=== PATIENT | male | born 1930 | race Caucasian/White ===

== ENCOUNTER 2017-09-17 10:01 | Inpatient (IN) | payer MEDICARE, OTHER ==
[2017-09-17] MEDS: ALBUTEROL 0.083% (NEB) 2.5 MG/3 ML AMP NEB (11:29)
[2017-09-17] MEDS: IPRATROPIUM (NEB) 0.5 MG/2.5 ML AMP NEB (11:30)
[2017-09-17 11:42] LABS: ADD MAN DIFF? NO
[2017-09-17 11:46] LABS: BASOPHILS % 0.1 % (0.0-2.0); EOSINOPHILS # 0.1 10^3/ul (0.0-0.5); EOSINOPHILS % 0.7 % (0.0-7.0); HEMOGLOBIN 10.3 g/dl (14.0-18.0); LYMPHOCYTES # 0.7 10^3/ul (0.8-2.9); LYMPHOCYTES % 4.9 % (15.0-51.0); MEAN CORPUSCULAR HEMOGLOBIN 27.2 pg (29.0-33.0); MEAN CORPUSCULAR HGB CONC 33.2 g/dl (32.0-37.0); MEAN PLATELET VOLUME 9.7 fl (7.4-10.4); MONOCYTE # 0.6 10^3/ul (0.3-0.9); MONOCYTES % 3.9 % (0.0-11.0); NEUTROPHIL # 13.3 10^3/ul (1.6-7.5); NEUTROPHILS % 89.9 % (39.0-77.0); PLATELET COUNT 361 10^3/UL (140-415); RED BLOOD COUNT 3.78 10^6/ul (4.70-6.10); RED CELL DISTRIBUTION WIDTH 16.4 % (11.5-14.5)
[2017-09-17 11:46] LABS: WHITE BLOOD COUNT 14.8 10^3/ul (4.8-10.8)
[2017-09-17] MEDS: CEFEPIME 2GM/50 ML (PMX) 50 ML IVPB (11:51)
[2017-09-17] MEDS: ACETAMINOPHEN 325 MG TAB PO (11:51)
[2017-09-17] MEDS: METHYLPREDNISOLONE 125 MG INJ IV (11:51)
[2017-09-17] MEDS: KETOROLAC 15 MG INJ IV (11:51)
[2017-09-17] MEDS: SODIUM CHLORIDE 0.9% 1L BAG IV* (11:52)
[2017-09-17 12:03] LABS: LACTIC ACID 1.7 mmol/L (0.5-2.0)
[2017-09-17 12:07] LABS: ALANINE AMINOTRANSFERASE 29 IU/L (13-69); ALBUMIN/GLOBULIN RATIO 1.08; ALKALINE PHOSPHATASE 82 IU/L (42-121); ANION GAP 20 (8-16); ASPARTATE AMINO TRANSFERASE 23 IU/L (15-46); BILIRUBIN,INDIRECT 0.3 mg/dl (0-1.1); BILIRUBIN,TOTAL 0.3 mg/dl (0.2-1.3); BLOOD UREA NITROGEN 21 mg/dl (7-20); CALCIUM 9.4 mg/dl (8.4-10.2); CARBON DIOXIDE 24 mmol/L (21-31); CHLORIDE 101 mmol/L (97-110); CREATININE 0.99 mg/dl (0.61-1.24); GLUCOSE 192 mg/dl (70-220); LIPASE 53 U/L (23-300); POTASSIUM 5.3 mmol/L (3.5-5.1); SODIUM 140 mmol/L (135-144); TOTAL PROTEIN 7.7 g/dl (6.1-8.1)
[2017-09-17 12:12] LABS: INR 1.06; PROTIME 13.9 Sec (11.9-14.9); PT RATIO 1.1
[2017-09-17 12:18] LABS: TROPONIN-I < 0.012 ng/ml (0.00-0.12)
[2017-09-17] MEDS: VANCOMYCIN 1 GM (PMX) 250 ML IVPB (12:52)
[2017-09-17 13:25] LABS: ADD UMIC YES; UR ASCORBIC ACID NEGATIVE (NEGATIVE); UR BILIRUBIN (Dip) NEGATIVE (NEGATIVE); UR BLOOD (Dip) 1+ mg/dL (NEGATIVE); UR CLARITY CLEAR (CLEAR); UR COLOR STRAW (YELLOW); UR GLUCOSE (Dip) NEGATIVE (NEGATIVE); UR KETONES (Dip) NEGATIVE (NEGATIVE); UR LEUKOCYTE ESTERASE (Dip) NEGATIVE Leu/ul (NEGATIVE); UR NITRITE (Dip) NEGATIVE (NEGATIVE); UR RBC 0 /HPF (0-5); UR SPECIFIC GRAVITY (Dip) 1.004 (1.003-1.030); UR TOTAL PROTEIN (Dip) NEGATIVE (NEGATIVE); UR UROBILINOGEN (Dip) NEGATIVE (NEGATIVE); UR WBC 0 /HPF (0-5)
[2017-09-17] MEDS ORDERED: ONDANSETRON 4 MG INJ IV (13:30)
[2017-09-17] MEDS ORDERED: ACETAMINOPHEN 325 MG TAB PO ×2 (13:30→16:00)
[2017-09-17 13:48] LABS: LACTIC ACID 1.3 mmol/L (0.5-2.0)
[2017-09-17] MEDS: OSELTAMIVIR 75 MG CAP PO ×2 (13:52→17:57)
[2017-09-17] MEDS ORDERED: DEXTROSE 50% 50 ML SYRINGE IV ×2 (16:00)
[2017-09-17] MEDS ORDERED: NACL 0.9% 3 ML SYG IV (16:00)
[2017-09-17] MEDS ORDERED: GLUCOSE GEL 15 GRAM TUBE PO ×2 (16:00)
[2017-09-17] MEDS ORDERED: GLUCOSE GEL 15 GRAM TUBE BUCCAL (16:00)
[2017-09-17] MEDS ORDERED: GLUCAGON 1 MG INJ IM (16:00)
[2017-09-17 16:30] LABS: LACTIC ACID 1.6 mmol/L (0.5-2.0)
[2017-09-17] MEDS ORDERED: ALBUTEROL HFA 8 GM INHALER INH (16:30)
[2017-09-17] MEDS: INSULIN ASPART [NOVOLOG] 3 ML PEN SC ×3 (17:57→20:57)
[2017-09-17] MEDS: FERROUS SULFATE (EC) 325 MG TAB PO (20:32)
[2017-09-17] MEDS: RANITIDINE 150 MG TAB PO (20:32)
[2017-09-17] MEDS: MAGNESIUM OXIDE 400 MG TAB PO (20:33)
[2017-09-17] MEDS ORDERED: INSULIN GLARGINE [LANtus] 3 ML PEN SC (21:00)
[2017-09-18] MEDS: hydrALAzine 20 MG INJ IV ×2 (00:36→04:42)
[2017-09-18] MEDS: OSELTAMIVIR 75 MG CAP PO ×3 (00:44→21:46)
[2017-09-18] MEDS: ACCU-CHEK XX (02:00)
[2017-09-18] MEDS: morphine 2 MG INJ IV (02:20)
[2017-09-18] MEDS: INSULIN ASPART [NOVOLOG] 3 ML PEN SC ×6 (02:58→21:50)
[2017-09-18] MEDS: ENALAPRILAT 1.25 MG INJ IV (03:00)
[2017-09-18 06:08] LABS: ADD MAN DIFF? NO
[2017-09-18] MEDS: LEVOTHYROXINE 25 MCG TAB PO (06:09)
[2017-09-18] MEDS: PANTOPRAZOLE (EC) 40 MG TAB PO (06:10)
[2017-09-18 06:12] LABS: BASOPHILS % 0.1 % (0.0-2.0); HEMATOCRIT 33.7 % (42.0-52.0); HEMOGLOBIN 11.1 g/dl (14.0-18.0); LYMPHOCYTES # 0.9 10^3/ul (0.8-2.9); LYMPHOCYTES % 4.3 % (15.0-51.0); MEAN CORPUSCULAR HEMOGLOBIN 26.9 pg (29.0-33.0); MEAN CORPUSCULAR HGB CONC 32.9 g/dl (32.0-37.0); MEAN CORPUSCULAR VOLUME 81.8 fl (82.0-101.0); MEAN PLATELET VOLUME 11.2 fl (7.4-10.4); MONOCYTE # 1.3 10^3/ul (0.3-0.9); MONOCYTES % 6.4 % (0.0-11.0); NEUTROPHIL # 17.4 10^3/ul (1.6-7.5); NEUTROPHILS % 88.5 % (39.0-77.0); PLATELET COUNT 365 10^3/UL (140-415); RED BLOOD COUNT 4.12 10^6/ul (4.70-6.10); RED CELL DISTRIBUTION WIDTH 16.6 % (11.5-14.5)
[2017-09-18 06:12] LABS: WHITE BLOOD COUNT 19.7 10^3/ul (4.8-10.8)
[2017-09-18 06:48] LABS: ANION GAP 23 (8-16); BLOOD UREA NITROGEN 22 mg/dl (7-20); CALCIUM 9.5 mg/dl (8.4-10.2); CARBON DIOXIDE 19 mmol/L (21-31); CHLORIDE 104 mmol/L (97-110); MAGNESIUM 1.6 mg/dl (1.7-2.5); PHOSPHORUS 3.8 mg/dl (2.5-4.9); POTASSIUM 4.2 mmol/L (3.5-5.1); SODIUM 142 mmol/L (135-144)
[2017-09-18 06:52] LABS: GLUCOSE 421 mg/dl (70-220)
[2017-09-18] MEDS: GABAPENTIN 300 MG CAP PO (08:25)
[2017-09-18] MEDS: MAGNESIUM OXIDE 400 MG TAB PO ×3 (08:25→21:46)
[2017-09-18] MEDS: MULTIVITAMINS THERAPEUTIC TAB PO (08:26)
[2017-09-18] MEDS: RANITIDINE 150 MG TAB PO ×2 (08:27→21:46)
[2017-09-18] MEDS: NIFEdipine (XL) 60 MG TAB PO (08:27)
[2017-09-18] MEDS: ASCORBIC ACID 500 MG TAB PO (08:27)
[2017-09-18] MEDS: FERROUS SULFATE (EC) 325 MG TAB PO ×3 (08:29→21:46)
[2017-09-18] MEDS: ENOXAPARIN 40 MG/0.4 ML SYG SC (08:30)
[2017-09-18] MEDS: MAGNESIUM SULFATE 2 GM/50 ML 50 ML IVPB (10:22)
[2017-09-18] MEDS: INSULIN GLARGINE [LANtus] 3 ML PEN SC (10:28)
[2017-09-18] MEDS: HYDROCODONE/APAP (5/325) TAB PO (11:51)
[2017-09-18] MEDS: ONDANSETRON 4 MG TAB PO (12:26)
[2017-09-18] MEDS: SOD CHLORIDE 0.9% 500 ML IV (13:52)
[2017-09-18] MEDS: SOD CHLORIDE 0.9% 1,000 ML IV ×2 (14:09→16:09)
[2017-09-18 15:52] LABS: LACTIC ACID 1.9 mmol/L (0.5-2.0)
[2017-09-19] MEDS: ACCU-CHEK XX (02:00)
[2017-09-19] MEDS: PANTOPRAZOLE (EC) 40 MG TAB PO (06:06)
[2017-09-19] MEDS: LEVOTHYROXINE 25 MCG TAB PO (06:06)
[2017-09-19 06:13] LABS: ADD MAN DIFF? NO
[2017-09-19 06:15] LABS: WHITE BLOOD COUNT 10.6 10^3/ul (4.8-10.8)
[2017-09-19 06:15] LABS: BASOPHILS % 0.1 % (0.0-2.0); EOSINOPHILS # 0.1 10^3/ul (0.0-0.5); EOSINOPHILS % 0.6 % (0.0-7.0); HEMATOCRIT 27.1 % (42.0-52.0); HEMOGLOBIN 8.9 g/dl (14.0-18.0); LYMPHOCYTES % 19.1 % (15.0-51.0); MEAN CORPUSCULAR HEMOGLOBIN 27.2 pg (29.0-33.0); MEAN CORPUSCULAR HGB CONC 32.8 g/dl (32.0-37.0); MEAN CORPUSCULAR VOLUME 82.9 fl (82.0-101.0); MEAN PLATELET VOLUME 10.1 fl (7.4-10.4); MONOCYTES % 9.6 % (0.0-11.0); NEUTROPHIL # 7.4 10^3/ul (1.6-7.5); NEUTROPHILS % 70.2 % (39.0-77.0); PLATELET COUNT 268 10^3/UL (140-415); RED BLOOD COUNT 3.27 10^6/ul (4.70-6.10); RED CELL DISTRIBUTION WIDTH 16.8 % (11.5-14.5)
[2017-09-19 06:52] LABS: ANION GAP 14 (8-16); BLOOD UREA NITROGEN 26 mg/dl (7-20); CALCIUM 8.9 mg/dl (8.4-10.2); CARBON DIOXIDE 23 mmol/L (21-31); CHLORIDE 109 mmol/L (97-110); CREATININE 1.17 mg/dl (0.61-1.24); GLUCOSE 117 mg/dl (70-220); MAGNESIUM 2.4 mg/dl (1.7-2.5); PHOSPHORUS 3.6 mg/dl (2.5-4.9); POTASSIUM 4.6 mmol/L (3.5-5.1); SODIUM 141 mmol/L (135-144)
[2017-09-19] MEDS ORDERED: INSULIN GLARGINE [LANtus] 3 ML PEN SC (08:00)
[2017-09-19] MEDS: INSULIN ASPART [NOVOLOG] 3 ML PEN SC ×2 (08:02→12:12)
[2017-09-19] MEDS: INSULIN GLARGINE [LANtus] 3 ML PEN SC (08:05)
[2017-09-19] MEDS: OSELTAMIVIR 75 MG CAP PO (08:24)
[2017-09-19] MEDS: RANITIDINE 150 MG TAB PO (08:24)
[2017-09-19] MEDS: MULTIVITAMINS THERAPEUTIC TAB PO (08:24)
[2017-09-19] MEDS: MAGNESIUM OXIDE 400 MG TAB PO (08:24)
[2017-09-19] MEDS: NIFEdipine (XL) 60 MG TAB PO (08:24)
[2017-09-19] MEDS: GABAPENTIN 300 MG CAP PO (08:24)
[2017-09-19] MEDS: ASCORBIC ACID 500 MG TAB PO (08:25)
[2017-09-19] MEDS: FERROUS SULFATE (EC) 325 MG TAB PO (08:25)
[2017-09-19] MEDS: ENOXAPARIN 40 MG/0.4 ML SYG SC (08:26)
[2017-09-19] MEDS: ONDANSETRON 4 MG TAB PO (13:41)
== END 2017-09-19 14:20 | disposition home health service (06) | DRG 195 ==
LOC: E/R 10:01 → MS2 13:09
DX: J10.1 Influenza due to other identified influenza virus with other respiratory manifestations (principal); I10 Essential (primary) hypertension; Z87.891 Personal history of nicotine dependence
CPT/HCPCS: 36415; 71045; 71046; 80048; 80053; 81001; 82962; 83036; 83605; 83690; 83735; 84100; 84484; 85025; 85610; 85730; 87040; 87086; 87400; 93005; 94664; 96374; 96375; 99285-25

== ENCOUNTER → 2018-02-18 | Outpatient (CLI) | payer MEDICARE, OTHER | END | disposition home or self-care (01) | LOC: C/S 12:22 | DX: R10.9 Unspecified abdominal pain (principal) | CPT/HCPCS: 74176 ==

== ENCOUNTER 2018-04-24 10:49 | Emergency (ER) | payer MEDICARE, OTHER ==
[2018-04-24 11:28] LABS: ADD MAN DIFF? NO
[2018-04-24 11:30] LABS: WHITE BLOOD COUNT 10.1 10^3/ul (4.8-10.8)
[2018-04-24 11:30] LABS: BASOPHILS % 0.2 % (0.0-2.0); EOSINOPHILS # 0.2 10^3/ul (0.0-0.5); EOSINOPHILS % 1.5 % (0.0-7.0); HEMATOCRIT 32.5 % (42.0-52.0); HEMOGLOBIN 10.5 g/dl (14.0-18.0); LYMPHOCYTES # 1.9 10^3/ul (0.8-2.9); LYMPHOCYTES % 18.9 % (15.0-51.0); MEAN CORPUSCULAR HEMOGLOBIN 28.2 pg (29.0-33.0); MEAN CORPUSCULAR HGB CONC 32.3 g/dl (32.0-37.0); MEAN CORPUSCULAR VOLUME 87.4 fl (82.0-101.0); MEAN PLATELET VOLUME 11.2 fl (7.4-10.4); MONOCYTE # 0.7 10^3/ul (0.3-0.9); NEUTROPHIL # 7.2 10^3/ul (1.6-7.5); NEUTROPHILS % 71.8 % (39.0-77.0); PLATELET COUNT 261 10^3/UL (140-415); RED BLOOD COUNT 3.72 10^6/ul (4.70-6.10); RED CELL DISTRIBUTION WIDTH 14.6 % (11.5-14.5)
[2018-04-24 11:48] LABS: ALANINE AMINOTRANSFERASE 16 IU/L (13-69); ALBUMIN 3.9 g/dl (3.3-4.9); ALBUMIN/GLOBULIN RATIO 1.18; ALKALINE PHOSPHATASE 61 IU/L (42-121); ANION GAP 15 (5-13); ASPARTATE AMINO TRANSFERASE 16 IU/L (15-46); BILIRUBIN,INDIRECT 0.2 mg/dl (0-1.1); BILIRUBIN,TOTAL 0.2 mg/dl (0.2-1.3); BLOOD UREA NITROGEN 16 mg/dl (7-20); CALCIUM 9.6 mg/dl (8.4-10.2); CARBON DIOXIDE 24 mmol/L (21-31); CHLORIDE 102 mmol/L (97-110); CREATININE 1.45 mg/dl (0.61-1.24); GLUCOSE 245 mg/dl (70-220); LIPASE 49 U/L (23-300); POTASSIUM 5.1 mmol/L (3.5-5.1); SODIUM 141 mmol/L (135-144); TOTAL PROTEIN 7.2 g/dl (6.1-8.1)
[2018-04-24 12:00] LABS: TROPONIN-I < 0.012 ng/ml (0.000-0.120)
[2018-04-24 12:47] LABS: INR 0.97
[2018-04-24 12:48] LABS: PARTIAL THROMBOPLASTIN TIME 28.3 Sec (23.0-35.0)
[2018-04-24 13:48] LABS: ADD UMIC YES; UR CLARITY SLIGHTLY CLOUDY (CLEAR); UR COLOR AMBER (YELLOW)
[2018-04-24 13:50] LABS: UR TOTAL PROTEIN (Dip) 2+ mg/dl (NEGATIVE)
[2018-04-24 13:51] LABS: UR BILIRUBIN (Dip) 2+ mg/dL (NEGATIVE); UR BLOOD (Dip) 3+ mg/dL (NEGATIVE); UR GLUCOSE (Dip) 1+ mg/dL (NEGATIVE); UR KETONES (Dip) NEGATIVE (NEGATIVE); UR NITRITE (Dip) NEGATIVE (NEGATIVE)
[2018-04-24 13:52] LABS: UR ASCORBIC ACID 40 mg/dL (NEGATIVE); UR LEUKOCYTE ESTERASE (Dip) 1+ Leu/ul (NEGATIVE); UR UROBILINOGEN (Dip) 4.0 E.U./dL mg/dL (NEGATIVE)
[2018-04-24 13:53] LABS: UR BACTERIA FEW /HPF (NONE SEEN); UR SQUAMOUS EPITHELIAL CELL FEW /HPF (FEW); URINE RBCS >200 /HPF (0)
== END 2018-04-24 15:52 | disposition home or self-care (01) ==
LOC: E/R 10:49
DX: N18.9 Chronic kidney disease, unspecified (principal); R53.1 Weakness; D64.9 Anemia, unspecified; E11.65 Type 2 diabetes mellitus with hyperglycemia; I73.9 Peripheral vascular disease, unspecified; R31.29 Other microscopic hematuria; I12.9 Hypertensive chronic kidney disease with stage 1 through stage 4 chronic kidney disease, or unspecified chronic kidney disease; J45.909 Unspecified asthma, uncomplicated; Z87.891 Personal history of nicotine dependence; Z79.4 Long term (current) use of insulin; Z79.01 Long term (current) use of anticoagulants; Z79.82 Long term (current) use of aspirin
CPT/HCPCS: 36415; 71045; 74176; 80053; 81001; 82962; 83690; 84484; 85025; 85610; 85730; 87086; 93005; 99285-25

== ENCOUNTER → 2018-09-09 | Outpatient (CLI) | payer MEDICARE, OTHER | END | disposition home or self-care (01) | LOC: LAB 14:38 | DX: Z01.818 Encounter for other preprocedural examination (principal) | CPT/HCPCS: 71046 ==

== ENCOUNTER 2018-09-14 14:14 | Day surgery (SDC) | payer MEDICARE, OTHER ==
[~2018-09-14 14:14] MED LIST: CEFAZOLIN 1 GM INJ
[2018-09-14 15:31] LABS: ADD MAN DIFF? NO
[2018-09-14 15:34] LABS: WHITE BLOOD COUNT 8.3 10^3/ul (4.8-10.8)
[2018-09-14 15:34] LABS: BASOPHILS % 0.4 % (0.0-2.0); EOSINOPHILS # 0.2 10^3/ul (0.0-0.5); EOSINOPHILS % 2.5 % (0.0-7.0); HEMATOCRIT 29.9 % (42.0-52.0); HEMOGLOBIN 9.4 g/dl (14.0-18.0); LYMPHOCYTES # 1.7 10^3/ul (0.8-2.9); LYMPHOCYTES % 20.8 % (15.0-51.0); MEAN CORPUSCULAR HEMOGLOBIN 27.5 pg (29.0-33.0); MEAN CORPUSCULAR HGB CONC 31.4 g/dl (32.0-37.0); MEAN CORPUSCULAR VOLUME 87.4 fl (82.0-101.0); MEAN PLATELET VOLUME 10.9 fl (7.4-10.4); MONOCYTE # 0.7 10^3/ul (0.3-0.9); MONOCYTES % 8.4 % (0.0-11.0); NEUTROPHIL # 5.6 10^3/ul (1.6-7.5); NEUTROPHILS % 67.5 % (39.0-77.0); PLATELET COUNT 232 10^3/UL (140-415); RED BLOOD COUNT 3.42 10^6/ul (4.70-6.10); RED CELL DISTRIBUTION WIDTH 14.6 % (11.5-14.5)
[2018-09-14 15:40] LABS: HOLD TRANSMISSIONS 1
[2018-09-14] MEDS ORDERED: BUPIVACAINE 0.5% (SDV) 30 ML INJ (15:45)
[2018-09-14] MEDS ORDERED: LIDOCAINE 2% (MDV) 20 ML INJ (15:45)
[2018-09-14 15:54] LABS: INR 1.75; PROTIME 20.5 Sec (11.9-14.9); PT RATIO 1.6
[2018-09-14 15:55] LABS: ANION GAP 8 (5-13); BLOOD UREA NITROGEN 20 mg/dl (7-20); CALCIUM 8.5 mg/dl (8.4-10.2); CARBON DIOXIDE 29 mmol/L (21-31); CHLORIDE 103 mmol/L (97-110); CREATININE 1.04 mg/dl (0.61-1.24); GLUCOSE 147 mg/dl (70-220); PARTIAL THROMBOPLASTIN TIME 33.2 Sec (23.0-35.0); POTASSIUM 4.3 mmol/L (3.5-5.1); SODIUM 140 mmol/L (135-144)
[2018-09-14] MEDS ORDERED: OXYCODONE/ACETAMINOPHEN (5/325) TAB PO ×2 (16:30)
[2018-09-14] MEDS ORDERED: MIDAZOLAM 1 MG/ML 2 ML INJ IV (16:30)
[2018-09-14] MEDS ORDERED: ONDANSETRON 4 MG INJ IV (16:30)
[2018-09-14] MEDS ORDERED: MEPERIDINE 25 MG INJ IV (16:30)
[2018-09-14] MEDS ORDERED: ALBUTEROL 0.083% (NEB) 2.5 MG/3 ML AMP HHN (16:30)
[2018-09-14] MEDS ORDERED: FENTAnyl 50 MCG/ML VIAL IV ×3 (16:30)
[2018-09-14] MEDS ORDERED: TRIMETHOBENZAMIDE 100 MG/ML VIAL IM (16:30)
[2018-09-14] MEDS ORDERED: LABETALOL HCL 20MG INJ IV (16:30)
[2018-09-14] MEDS ORDERED: IPRATROPIUM (NEB) 0.5 MG/2.5 ML AMP HHN (16:30)
[2018-09-14] MEDS ORDERED: hydrALAzine 20 MG INJ IV (16:30)
[2018-09-14] MEDS ORDERED: HYDROmorphONE 1 MG/5 ML IV SYRINGE IV ×3 (16:30)
[2018-09-14] MEDS ORDERED: EPHEDrine SULFATE 50 MG/5 ML SYG IV (16:30)
[2018-09-14] MEDS ORDERED: DIPHENHYDRAMINE 50 MG INJ IV (16:30)
[2018-09-14] MEDS ORDERED: MIDAZOLAM 1 MG/ML 2 ML INJ (16:55)
[2018-09-14] MEDS: POLYMYXIN/BACITRACIN 1L IRRIG IRR ×2 (17:11)
[2018-09-14] MEDS: BUPIVACAINE 0.5% 30 ML VIAL INJ (17:12)
[2018-09-14] MEDS: LIDOCAINE 2% (MDV) 20 ML INJ INJ (17:13)
== END 2018-09-20 08:04 | disposition home or self-care (01) ==
LOC: SDS 14:14
DX: M86.172 Other acute osteomyelitis, left ankle and foot (principal); E11.52 Type 2 diabetes mellitus with diabetic peripheral angiopathy with gangrene; I96 Gangrene, not elsewhere classified; Z79.4 Long term (current) use of insulin; Z79.84 Long term (current) use of oral hypoglycemic drugs; I10 Essential (primary) hypertension; E78.5 Hyperlipidemia, unspecified; E03.9 Hypothyroidism, unspecified
CPT/HCPCS: 28825; 80048; 82962; 85025; 85610; 85730; 88304; 88311